=== PATIENT | male | born 1965 | race Caucasian/White ===

== ENCOUNTER 2016-12-29 05:33 | Emergency (ER) | payer SELFPAY ==
[2016-12-29 06:34] VITALS: BP 143/96
[2016-12-29] MEDS ORDERED: MOTRIN PO ONE (07:12)
--- NOTE | 2016-12-29 07:41 | Emergency Department Report ---
ED Back Pain/Injury HPI - General Chief Complaint: Back Pain/Injury Stated Complaint: PAIN RT HIP/LEG Time Seen by Provider: 12/29/16 07:08 Source: patient Limitations: No Limitations - History of Present Illness Initial Comments: This is a 51-year-old male well-nourished with nontoxic or ill in appearance but presents with right sided lower back and right hip pain that radiates to the right leg for the past 3 days. 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 Patient stated this occurred while lifting heavy buckets. Denies any injury or trauma to the area. Patient denies any numbness, tingling, nausea, vomiting, chest pain, short of breath, abdominal pain, dysuria, polyuria, foul odor urine, fever, chills, headache, or stiff neck. Patient rates pain as 8 out of 10 that is described as aching and sharp. Patient states symptoms are relieved on supine and sitting position. Patient denies any allergies. Denies significant past medical history. MD Complaint: back pain -: Gradual, days(s) (3) Similar Symptoms Previously: No Place: work Radiation: right leg Severity scale (0 -10): 8 Quality: sharp, aching Consistency: constant Improves With: supine, sitting upright Worsens With: immobilization, movement Context: while lifting Associated Symptoms: denies other symptoms. denies: confusion, weakness, chest pain, numbness, difficulty walking, cough, difficulty urinating, diaphoresis, incontinence, fever/chills, constipation, headaches, abdominal pain, loss of appetite, malaise, nausea/vomiting, rash, seizure, shortness of breath, syncope - Related Data Previous Rx's Medication Instructions Recorded Last Taken Type Dicyclomine [Bentyl] 20 mg PO QID PRN #20 tablet 08/05/14 Unknown Rx Famotidine [Pepcid] 40 mg PO QHS #30 tablet 08/05/14 Unknown Rx Lisinopril/Hydrochlorothiazide 1 tab PO QDAY #30 tablet 08/05/14 Unknown Rx [Zestoretic 20-25 mg] Ibuprofen [Motrin 600 MG tab] 600 mg PO Q8H PRN #15 tablet 12/29/16 Unknown Rx predniSONE [Deltasone] 20 mg PO BID #10 tab 12/29/16 Unknown Rx Allergies Allergy/AdvReac Type Severity Reaction Status Date / Time No Known Allergies Allergy Unverified 08/05/14 20:20 ED Review of Systems ROS: Stated complaint: PAIN RT HIP/LEG Other details as noted in HPI Constitutional: denies: chills, fever Eyes: denies: eye pain, eye discharge, vision change ENT: denies: ear pain, throat pain Respiratory: denies: cough, shortness of breath, wheezing Cardiovascular: denies: chest pain, palpitations Endocrine: no symptoms reported Gastrointestinal: denies: abdominal pain, nausea, diarrhea Genitourinary: denies: urgency, dysuria Musculoskeletal: denies: back pain, joint swelling, arthralgia Skin: denies: rash, lesions Neurological: denies: headache, weakness, paresthesias Psychiatric: denies: anxiety, depression Hematological/Lymphatic: denies: easy bleeding, easy bruising ED Past Medical Hx - Past Medical History Previous Medical History?: Yes Hx Hypertension: Yes - Social History Smoking Status: Never Smoker Substance Use Type: Alcohol - Medications Home Medications: Home Medications Medication Instructions Recorded Confirmed Last Taken Type Dicyclomine [Bentyl] 20 mg PO QID PRN #20 tablet 08/05/14 Unknown Rx Famotidine [Pepcid] 40 mg PO QHS #30 tablet 08/05/14 Unknown Rx Lisinopril/Hydrochlorothiazide 1 tab PO QDAY #30 tablet 08/05/14 Unknown Rx [Zestoretic 20-25 mg] Ibuprofen [Motrin 600 MG tab] 600 mg PO Q8H PRN #15 tablet 12/29/16 Unknown Rx predniSONE [Deltasone] 20 mg PO BID #10 tab 12/29/16 Unknown Rx ED Physical Exam - General Limitations: No Limitations General appearance: alert, in no apparent distress - Head Head exam: Present: atraumatic, normocephalic, normal inspection - Eye Eye exam: Present: normal appearance, PERRL, EOMI. Absent: scleral icterus, conjunctival injection, nystagmus, periorbital swelling, periorbital tenderness Pupils: Present: normal accommodation - ENT ENT exam: Present: normal exam, normal orophraynx, mucous membranes moist, TM's normal bilaterally, normal external ear exam - Neck Neck exam: Present: normal inspection, full ROM. Absent: tenderness, meningismus, lymphadenopathy, thyromegaly - Respiratory Respiratory exam: Present: normal lung sounds bilaterally. Absent: respiratory distress, wheezes, rales, rhonchi, stridor, chest wall tenderness, accessory muscle use, decreased breath sounds, prolonged expiratory - Cardiovascular Cardiovascular Exam: Present: regular rate, normal rhythm, normal heart sounds. Absent: bradycardia, tachycardia, irregular rhythm, systolic murmur, diastolic murmur, rubs, gallop - GI/Abdominal GI/Abdominal exam: Present: soft, normal bowel sounds. Absent: distended, tenderness, guarding, rebound, rigid, diminished bowel sounds - Rectal Rectal exam: Present: deferred - Extremities Exam Extremities exam: Present: normal inspection, full ROM, normal capillary refill. Absent: tenderness, pedal edema, joint swelling, calf tenderness - Back Exam Back exam: Present: normal inspection, full ROM. Absent: tenderness, CVA tenderness (R), CVA tenderness (L), muscle spasm, paraspinal tenderness, vertebral tenderness, rash noted - Expanded Back Exam Expanded Back exam: Absent: saddle anesthesia Back exam: Negative Straight Leg Raising: Left, Right - Neurological Exam Neurological exam: Present: alert, oriented X3, CN II-XII intact, normal gait - Psychiatric Psychiatric exam: Present: normal affect, normal mood. Absent: depressed, agitated - Skin Skin exam: Present: warm, dry, intact, normal color. Absent: rash ED Course Vital Signs 12/29/16 12/29/16 06:26 07:55 Temperature 99.5 F Pulse Rate 96 H 86 Respiratory 16 16 Rate Blood Pressure 143/96 O2 Sat by Pulse 99 Oximetry - Reevaluation(s) Reevaluation #1: 12/29/16 07:44 Patient is laying supine with no acute signs of distress. Patients son is currently present and is helping with translation. ED Medical Decision Making - Medical Decision Making Ed course: This is a 51-year-old male that presents with lumbar radiculopathy 1- after my physical exam, patient received an x-ray to the lumbar sacral region. Patient was notified of x-ray results with no further questions noted by the patient. Patient also received ibuprofen 800 mg and Solu-Medrol 40 mg IM by mouth in ED. 2- patient was instructed to follow-up with primary care doctor/orthopedic doctor in 3-5 days for further evaluation with possibly having an MRI or if symptoms worsen such as bladder or bowel stability, chest pain, short of breath , numbness or tingling sensation in extremities, headache, dizziness, visual changes, nausea vomiting, or abdominal pain, upper back to emergency room as was possible. 3- patient received ibuprofen 600 by mouth at the time of discharge. 4- at time time of discharge, the patient does not seem toxic or ill in appearance. No acute signs of distress noted. Patient agrees to discharge treatment plan of care. No further questions noted by the patient. Critical care attestation.: If time is entered above; I have spent that time in minutes in the direct care of this critically ill patient, excluding procedure time. ED Disposition Clinical Impression: Lumbar radiculopathy, acute, Lumbar spondylolysis Disposition: TO HOME OR SELFCARE Is pt being admited?: No Does the pt Need Aspirin: No Condition: Stable Instructions: Ibuprofen (By mouth), Low Back Strain (ED), Lumbar Radiculopathy (ED), Degenerative Disc Disease (ED) Additional Instructions: Follow-up with primary care doctor/orthopedic doctor in 3-5 days for further evaluation with possibly having an MRI or if symptoms worsen such as bladder or bowel stability, chest pain, short of breath, numbness or tingling sensation in extremities, headache, dizziness, visual changes, nausea vomiting, or abdominal pain, upper back to emergency room as was possible. Take ibuprofen as prescribed as needed for pain. Take prednisone as prescribed. Prescriptions: Ibuprofen [Motrin 600 MG tab] 600 mg PO Q8H PRN #15 tablet PRN Reason: Pain predniSONE [Deltasone] 20 mg PO BID #10 tab Referrals: PRIMARY CAREMD [Primary Care Provider] - 3-5 Days [facility] [Outside] - 3-[address] [facility] [Outside] - 3-5 Days LYLY KAPADIA JR, MD [Staff Physician] - 3-5 Days SHAJI GARCIA MD [Staff Physician] - 3-5 Days Forms: Work/School Release Form(ED)
--- NOTE | 2016-12-29 08:59 | XRay Report ---
RIGHT HIP RADIOGRAPHS INDICATION: Hip pain. COMPARISON: None similar. FINDINGS: AP pelvic radiographs with frog-leg projection of the right hip demonstrate intact articulation. Imaged bilateral SI and hip joints appear intact. Nonobstructive bowel gas pattern. CONCLUSION: No acute radiographic abnormality. Thank you for the opportunity to participate in this patient's care.
--- NOTE | 2016-12-29 09:06 | XRay Report ---
LUMBAR SPINE RADIOGRAPHS: INDICATION: Back pain. COMPARISON: None similar. FINDINGS: AP, oblique and lateral lumbar spine radiographs demonstrate normal vertebral body stature and alignment. Mild degenerative spurring throughout the imaged spine, greatest at L5 while least involving L2. No evidence of a pars defect. Intact SI joints. Nonobstructive bowel gas pattern with ascending colon stool/possible constipation. CONCLUSION: No acute radiographic abnormality with lumbar spondylosis and few other findings, as above. Thank you for the opportunity to participate in this patient's care.
== END 2016-12-29 09:35 | disposition home or self-care (01) ==
LOC: ED 05:33
DX: M54.16 Radiculopathy, lumbar region (principal); M43.06 Spondylolysis, lumbar region; I10 Essential (primary) hypertension
CPT/HCPCS: 72110; 73502; 96372; 99283; J2920